=== PATIENT | female | born 1965 | race Caucasian/White ===

== ENCOUNTER → 2021-01-01 | Outpatient (CLI) | payer BC ==
--- NOTE | 2021-01-03 10:18 | MM ---
Reason for exam: screening (asymptomatic). Last mammogram was performed 11 years and 6 months ago. History: Family history of breast cancer in mother at age 62. Taking hormonal contraceptives for 3 years beginning at age 38. Physical Findings: A clinical breast exam by your physician is recommended on an annual basis and results should be correlated with mammographic findings. MG Screening Mammo w CAD Bilateral CC and MLO view(s) were taken. Prior study comparison: July 09, 2009, bilateral digital screening mammogram. March 18, 2007, bilateral screening mammogram w/CAD. The breast tissue is heterogeneously dense. This may lower the sensitivity of mammography. Finding: There is a 8 mm high density mass located 10 cm from the nipple in the upper outer quadrant of the right breast consistent with possible mass, cyst. New finding since July 09, 2009 and March 18, 2007. ASSESSMENT: Incomplete: need additional imaging evaluation, BI-RAD 0 RECOMMENDATION: Ultrasound of the right breast. [facility] will attempt to contact patient to return for ultrasound.
== END | disposition home or self-care (01) ==
LOC: RADMAMWWP 11:08
PROVIDERS: ATTEND Family Medicine
DX: Z12.31 Encounter for screening mammogram for malignant neoplasm of breast (principal); Z80.3 Family history of malignant neoplasm of breast
CPT/HCPCS: 77067

== ENCOUNTER 2021-01-15 07:42 | Day surgery (SDC) | payer BC ==
[2021-01-13 10:27] VITALS: BMI 37.8
[~2021-01-15 07:42] MED LIST: LACTATED RINGERS 1,000 ML IV SCH; LIDOCAINE 1% (10MG/ML) FOR IV START INTRADERMA PRN
[2021-01-15 08:18] VITALS: TEMP 97.5
[2021-01-15] MEDS ORDERED: PROPOFOL 10 MG/ML 20 ML VIAL IV ONE (08:42)
--- NOTE | 2021-01-15 09:02 | P.PCN ---
Date of Procedure: 01/15/21 Procedure(s) Performed: BRIEF HISTORY: Patient is a 55-year-old pleasant female scheduled for an elective colonoscopy as a part of screening for colorectal neoplasia. PROCEDURE PERFORMED: Colonoscopy. PREOPERATIVE DIAGNOSIS: Screening for colon cancer. IV sedation per Anesthesia. PROCEDURE: After informed consent was obtained, the patient, was brought into the endoscopy unit. IV sedation was administered by Anesthesia under continuous monitoring. Digital rectal examination was normal. Initially the Olympus CF-160 flexible video colonoscope was then inserted in the rectum, gradually advanced into the cecum without any difficulty. Careful examination was performed as the scope was gradually being withdrawn. Ileocecal valve and the appendiceal orifice were visualized and appeared normal. Prep was excellent. Mucosa of the cecum, ascending colon, transverse colon, descending colon, sigmoid colon, and rectum appeared normal. Retroflexion was performed in the rectum and no lesions were seen. The patient tolerated the procedure well. IMPRESSION: Normal-appearing colon from rectum to cecum with no evidence of colorectal neoplasia . RECOMMENDATIONS: Findings of this examination were discussed with the patient as well as a family. She was advised to have a repeat screening colonoscopy in 10 years..
[2021-01-15 09:19] VITALS: BP 121/78; PULSE 61; RESP 18
== END 2021-01-15 09:37 | disposition home or self-care (01) ==
LOC: ORWHC2ENDO 07:42
PROVIDERS: ATTEND Internal Medicine Gastroenterology
DX: Z12.11 Encounter for screening for malignant neoplasm of colon (principal); Z79.899 Other long term (current) drug therapy; R56.9 Unspecified convulsions; G43.909 Migraine, unspecified, not intractable, without status migrainosus; Z98.84 Bariatric surgery status
CPT/HCPCS: J2704; G0121

== ENCOUNTER → 2021-01-24 | Outpatient (CLI) | payer BC ==
--- NOTE | 2021-01-27 10:34 | USB ---
Reason for exam: additional evaluation requested from abnormal screening. History: Family history of breast cancer in mother at age 62. Taking hormonal contraceptives for 3 years beginning at age 38. Physical Findings: Nurse did not find any significant physical abnormalities on exam. US Breast Workup Limited RT Technologist: Candy Disla Right limited breast ultrasound including focal area of concern, retroareolar and axilla demonstrates a 0.5 x 0.7 x 0.2cm cystic, minimally complex lesion at 10 o'clock, a 1.0 x 1.8 x 0.7cm cystic, complex/septated, probably benign lesion at 10 o'clock, a 0.5 x 0.6 x 0.4cm cystic lesion at 11 o'clock, a 0.9 x 1.1 x 0.5cm cystic lesion at 10 o'clock, a 0.9 x 1.1 x 0.5cm cystic lesion at 10 o'clock, simple, most likely mammographic nodule and a 3.6 x 1.1cm lymph node at the axilla. These results were verbally communicated with the patient and result sheet given to the patient on 01/24/21. ASSESSMENT: Probably benign, BI-RAD 3 RECOMMENDATION: Ultrasound of the right breast in 6 months.
== END | disposition home or self-care (01) ==
LOC: RADUSWWP 07:44
PROVIDERS: ATTEND Family Medicine
DX: N60.01 Solitary cyst of right breast (principal); Z80.3 Family history of malignant neoplasm of breast; Z79.3 Long term (current) use of hormonal contraceptives

== ENCOUNTER 2021-03-01 13:50 | Emergency (ER) | payer BC, OTHER ==
[2021-03-01 13:57] VITALS: BP 119/75; PULSE 54; RESP 20; TEMP 98.1
[2021-03-01] MEDS ORDERED: ACET/COD 300 MG/30 MG STARTER PACK 6 TAB BTL PO STA (14:17)
[2021-03-01] MEDS ORDERED: HYDROcodone/APAP 5-325MG 1 EACH TAB PO STA (14:17)
--- NOTE | 2021-03-01 14:20 | ED ---
Back Pain HPI - General Chief Complaint: Back Pain/Injury Stated Complaint: Back injury [facility] Time Seen by Provider: 03/01/21 13:59 Source: patient, RN notes reviewed Limitations: no limitations - History of Present Illness Initial Comments: This a 54-year-old female presents emergency Department chief complaint low back pain. Patient states she was at work moving patient states that she twisted wrong. Patient had a history of sciatica feels are similar. Denies any bowel, bladder incontinence or patient denies any falls no abdominal complaints no other issues - Related Data Home Medications Medication Instructions Recorded Confirmed Ergocalciferol [Vitamin D2] 50,000 unit PO FR 04/16/20 01/13/21 FLUoxetine HCL [PROzac] 40 mg PO DAILY 04/16/20 01/13/21 Pedi Multivit No.25/Folic Acid 2 tab PO DAILY 04/16/20 01/13/21 [Flintstones Multivit Chew Tab] buPROPion [Wellbutrin] 200 mg PO BID 04/16/20 01/13/21 Previous Rx's Medication Instructions Recorded Cyclobenzaprine [Flexeril] 5 mg PO TID PRN #15 tablet 03/01/21 Ibuprofen [Motrin] 600 mg PO Q8HR PRN #20 tab 03/01/21 predniSONE 50 mg PO DAILY #5 tab 03/01/21 Allergies Allergy/AdvReac Type Severity Reaction Status Date / Time No Known Allergies Allergy Verified 03/01/21 13:56 Review of Systems ROS Statement: Those systems with pertinent positive or pertinent negative responses have been documented in the HPI. ROS Other: All systems not noted in ROS Statement are negative. Past Medical History Past Medical History: Seizure Disorder Additional Past Medical History / Comment(s): migraines, last seizure 2014(none since wt loss), History of Any Multi-Drug Resistant Organisms: None Reported Past Surgical History: Bariatric Surgery, Section, Tonsillectomy Additional Past Surgical History / Comment(s): gastric bypass, Past Anesthesia/Blood Transfusion Reactions: Motion Sickness Additional Past Anesthesia/Blood Transfusion Reaction / Comment(s): past hx motion sickness Past Psychological History: Depression Smoking Status: Never smoker Past Alcohol Use History: None Reported Past Drug Use History: None Reported - Past Family History Mother Family Medical History: Cancer General Exam Limitations: no limitations General appearance: alert, in no apparent distress Head exam: Present: atraumatic, normocephalic, normal inspection Neck exam: Present: normal inspection. Absent: tenderness, meningismus, lymphadenopathy Respiratory exam: Present: normal lung sounds bilaterally. Absent: respiratory distress, wheezes, rales, rhonchi, stridor Cardiovascular Exam: Present: regular rate, normal rhythm, normal heart sounds. Absent: systolic murmur, diastolic murmur, rubs, gallop, clicks GI/Abdominal exam: Present: soft, normal bowel sounds. Absent: distended, tenderness, guarding, rebound, rigid Extremities exam: Present: normal inspection, full ROM, normal capillary refill. Absent: tenderness, pedal edema, joint swelling, calf tenderness Back exam: Present: normal inspection, tenderness, muscle spasm, paraspinal te nderness. Absent: full ROM, vertebral tenderness Neurological exam: Present: reflexes normal. Absent: motor sensory deficit Course Vital Signs 03/01/21 13:52 Temperature 98.1 F Pulse Rate 54 L Respiratory 20 Rate Blood Pressure 119/75 O2 Sat by Pulse 99 Oximetry Medical Decision Making - Medical Decision Making Patient has a lumbar strain with no red flag symptoms she does have some radicular symptoms which has happened in the past with this patient will be discharged stable condition return parameters were discussed. Disposition Clinical Impression: Strain of lumbar region, Lumbar radiculopathy Disposition: HOME SELF-CARE Condition: Stable Instructions (If sedation given, give patient instructions): Acute Low Back Pain (ED) Additional Instructions: Please return to the Emergency Department if symptoms worsen or any other concerns. Prescriptions: Cyclobenzaprine [Flexeril] 5 mg PO TID PRN #15 tablet PRN Reason: Muscle Spasm Ibuprofen [Motrin] 600 mg PO Q8HR PRN #20 tab PRN Reason: Pain predniSONE 50 mg PO DAILY #5 tab Is patient prescribed a controlled substance at d/c from ED?: No Referrals: Adwoa Forte MD [Primary Care Provider] - 1-2 days Time of Disposition: 14:20
== END 2021-03-01 14:36 | disposition home or self-care (01) ==
LOC: EC 13:50
DX: S39.012A Strain of muscle, fascia and tendon of lower back, initial encounter (principal); M54.16 Radiculopathy, lumbar region; G40.909 Epilepsy, unspecified, not intractable, without status epilepticus; F32.9 Major depressive disorder, single episode, unspecified; Z79.1 Long term (current) use of non-steroidal anti-inflammatories (NSAID); Z79.52 Long term (current) use of systemic steroids; Z79.899 Other long term (current) drug therapy; Z98.84 Bariatric surgery status; X50.1XXA Overexertion from prolonged static or awkward postures, initial encounter; Y99.0 Civilian activity done for income or pay
CPT/HCPCS: 99283

== ENCOUNTER → 2021-03-06 | Outpatient (CLI) | payer OTHER ==
--- NOTE | 2021-03-06 17:48 | XR ---
PROCEDURE: XR LUMBAR SPINE - 3V DATE AND TIME: 03/06/2021 5:16 PM CLINICAL INDICATION: Pain after heavy lifting injury 5 days ago; S39.012D TECHNIQUE: Department protocol COMPARISON: None FINDINGS: There is no fracture or malalignment. The soft tissues are unremarkable. IMPRESSION: No acute radiographic process.
== END | disposition home or self-care (01) ==
LOC: RADXRMAIN 16:36
PROVIDERS: ATTEND Emergency Medicine
DX: S39.012D Strain of muscle, fascia and tendon of lower back, subsequent encounter (principal)
CPT/HCPCS: 72100

== ENCOUNTER → 2022-02-16 | Outpatient (CLI) | payer BC ==
--- NOTE | 2022-02-16 08:14 | USB ---
Patient History: Menarche at age 11. First Full-Term at age 29. Postmenopausal. Hormonal Contraceptives, starting at age 38 for 3 years. Mother had breast cancer, age 62. Risk Values: Mandy 5 year model risk: 2.7%. NCI Lifetime model risk: 16.6%. Prior Study Comparison: 03/18/2007 Bilateral Screening Mammogram, [facility]. 07/09/2009 Bilateral Screening Mammogram, [facility]. 01/01/2021 Bilateral Screening Mammogram, [facility]. Findings: The whole breast of the right breast, the axilla of the right breast and the retroareolar of the right breast were scanned. Whole right breast ultrasound is performed including scanning of the subareolar region and axilla. - 9:00 position, 6 cm from the nipple, there is a 7 mm benign cyst. - 10:00 position, 8 cm from the nipple, there is a 1.1 cm benign cyst. - 11:00 position, 8 cm from the nipple, there is a 1.4 x 1.2 x 0.6 cm lobulated cyst cluster (previously measured 1.8 x 1.0 x 0.7 cm). Stability and slight decrease in size suggests a benign etiology. Probable mammographic correlate. An additional one-year diagnostic follow-up mammogram can be performed. No other solid or cystic lesion. No axillary lymphadenopathy. Overall Assessment: Probably benign, BI-RAD 3 Management: Diagnostic Mammogram of both breasts in 1 year. 1. For reassessment of the right-sided upper outer quadrant nodularity (total 2 year follow-up right breast and annual exam left breast). 2. Patient should continue monthly self breast exam. A clinical breast exam by your physician is recommended on an annual basis. 3. This exam should not preclude additional follow-up of suspicious palpable abnormalities. Electronically signed and approved by: Selin Arguello M.D. Radiologist
--- NOTE | 2022-02-27 15:50 | MM ---
Reason for Exam: Additional evaluation requested from prior study. Last mammogram was performed 1 year(s) and 2 month(s) ago. Patient History: Menarche at age 11. First Full-Term at age 29. Postmenopausal. Hormonal Contraceptives, starting at age 38 for 3 years. Mother had breast cancer, age 62. Risk Values: Mandy 5 year model risk: 2.7%. NCI Lifetime model risk: 16.6%. Prior Study Comparison: 03/18/2007 Bilateral Screening Mammogram, [facility]. 07/09/2009 Bilateral Screening Mammogram, [facility]. 01/01/2021 Bilateral Screening Mammogram, [facility]. Tissue Density: The breast tissue is heterogeneously dense. This may lower the sensitivity of mammography. Findings: Analyzed By CAD. Upper outer quadrant right breast nodularity is unchanged for one year. Global asymmetry lateral left CC view also remains unchanged. There is otherwise, no significant change from prior exams. Ultrasound reassessment recommended. Overall Assessment: Incomplete: need additional imaging evaluation, BI-RAD 0 Management: Diagnostic Breast Ultrasound of the right breast. Right breast ultrasound follow-up from prior. Electronically signed and approved by: Selin Arguello M.D. Radiologist
== END | disposition home or self-care (01) ==
LOC: RADMAMWWP 06:58
PROVIDERS: ATTEND Family Medicine
DX: R92.8 Other abnormal and inconclusive findings on diagnostic imaging of breast (principal); Z78.0 Asymptomatic menopausal state; Z80.3 Family history of malignant neoplasm of breast
CPT/HCPCS: 77066

== ENCOUNTER 2022-04-23 00:09 | Emergency (ER) | payer BC, OTHER ==
[2022-04-23 00:14] VITALS: RESP 18; TEMP 97.6
--- NOTE | 2022-04-23 00:20 | ED ---
General Adult HPI - General Chief complaint: Dizziness Stated complaint: Chest Pain Time Seen by Provider: 04/23/22 00:09 Source: patient, EMS Mode of arrival: EMS Limitations: no limitations - History of Present Illness Initial comments: Dictation was produced using [employer] dictation software. please excuse any grammatical, word or spelling errors. Chief Complaint: 56-year-old female presents to the emergency department for chief complaint of palpitations History of Present Illness: 56-year-old female who presents emergency department for palpitations. Patient's history of CABG. Just prior to arrival for the onset of her symptoms she had a marijuana coming. That her daughter gave her. Patient does not consume marijuana. This is her first time. She thought that maybe he might help her feel more relief. And to help her sleep. Patient has any symptoms currently. Denies any chest pain or chest pressure. She also rep orts that her extremities and skin feel tingly. The ROS documented in this emergency department record has been reviewed and confirmed by me. Those systems with pertinent positive or negative responses have been documented in the HPI. All other systems are other negative and/or noncontributory. PHYSICAL EXAM: General Impression: Alert and oriented x3, not in acute distress HEENT: Normocephalic atraumatic, extra-ocular movements intact, pupils equal and reactive to light bilaterally, mucous membranes moist. Cardiovascular: Heart regular rate and rhythm Chest: Able to complete full sentences, no retractions, no tachypnea Abdomen: abdomen soft, non-tender, non-distended, no organomegaly Musculoskeletal: Pulses present and equal in all extremities, no peripheral edema Motor: no focal deficits noted Neurological: CN II-XII grossly intact, no focal motor or sensory deficits noted Skin: Intact with no visualized rashes Psych: Normal affect and mood ED course: 56-year-old female presents emergency with clinical presentation consistent with marijuana toxicity. Vital signs upon arrival are within acceptable limits. Laboratory evaluation obtained. CBC metabolic panel unremarkable. Cardiac enzymes negative. Electrolytes normal. Patient reevaluated at 1:40 AM found to be in stable medical condition. She feels better. She denies any symptoms at this time. Daughters at the bedside take patient home and monitor patient for the next cold days. Patient advised follow-up with primary care doctor. EKG interpretation: Ventricular rate 77, sinus rhythm,. Interval 186, QS 102, QTC 406. No OK prolongation, no QTC prolongation, no ST or T-wave changes noted. No old EKG for comparison. Overall, this EKG is unremarkable - Related Data Home Medications Medication Instructions Recorded Confirmed Ergocalciferol [Vitamin D2] 50,000 unit PO FR 04/16/20 01/13/21 FLUoxetine HCL [PROzac] 40 mg PO DAILY 04/16/20 01/13/21 Pedi Multivit No.25/Folic Acid 2 tab PO DAILY 04/16/20 01/13/21 [Flintstones Multivit Chew Tab] buPROPion [Wellbutrin] 200 mg PO BID 04/16/20 01/13/21 Previous Rx's Medication Instructions Recorded Cyclobenzaprine [Flexeril] 5 mg PO TID PRN #15 tablet 03/01/21 Ibuprofen [Motrin] 600 mg PO Q8HR PRN #20 tab 03/01/21 predniSONE 50 mg PO DAILY #5 tab 03/01/21 Allergies Allergy/AdvReac Type Severity Reaction Status Date / Time No Known Allergies Allergy Verified 03/01/21 13:56 Review of Systems ROS Statement: Those systems with pertinent positive or pertinent negative responses have been documented in the HPI. ROS Other: All systems not noted in ROS Statement are negative. Past Medical History Past Medical History: Seizure Disorder Additional Past Medical History / Comment(s): migraines, last seizure 2014(none since wt loss), History of Any Multi-Drug Resistant Organisms: None Reported Past Surgical History: Bariatric Surgery, Section, Tonsillectomy Additional Past Surgical History / Comment(s): gastric bypass, Past Anesthesia/Blood Transfusion Reactions: Motion Sickness Additional Past Anesthesia/Blood Transfusion Reaction / Comment(s): past hx motion sickness Past Psychological History: Depression Smoking Status: Never smoker Past Alcohol Use History: None Reported Past Drug Use History: None Reported - Past Family History Mother Family Medical History: Cancer General Exam Limitations: no limitations Course Vital Signs 04/23/22 00:11 Temperature 97.6 F Pulse Rate 90 Respiratory 18 Rate Blood Pressure 146/77 O2 Sat by Pulse 95 Oximetry Medical Decision Making - Lab Data Result diagrams: 04/23/22 00:34 04/23/22 00:34 Lab Results 04/23/22 04/23/22 04/23/22 Range/Units 00:34 00:34 00:34 WBC 7.9 (3.8-10.6) k/uL RBC 4.52 (3.80-5.40) m/uL Hgb 13.7 (11.4-16.0) gm/dL Hct 39.6 (34.0-46.0) % MCV 87.6 (80.0-100.0) fL MCH 30.4 (25.0-35.0) pg MCHC 34.7 (31.0-37.0) g/dL RDW 12.8 (11.5-15.5) % Plt Count 363 (150-450) k/uL MPV 7.3 Neutrophils % 47 % Lymphocytes % 41 % Monocytes % 4 % Eosinophils % 5 % Basophils % 1 % Neutrophils # 3.7 (1.3-7.7) k/uL Lymphocytes # 3.2 (1.0-4.8) k/uL Monocytes # 0.3 (0-1.0) k/uL Eosinophils # 0.4 (0-0.7) k/uL Basophils # 0.1 (0-0.2) k/uL Sodium 141 (137-145) mmol/L Potassium 3.8 (3.5-5.1) mmol/L Chloride 107 (98-107) mmol/L Carbon Dioxide 24 (22-30) mmol/L Anion Gap 10 mmol/L BUN 17 (7-17) mg/dL Creatinine 0.79 (0.52-1.04) mg/dL Est GFR (CKD-EPI)AfAm >90 (>60 ml/min/1.73 sqM) Est GFR (CKD-EPI)NonAf 85 (>60 ml/min/1.73 sqM) Glucose 91 (74-99) mg/dL Calcium 9.2 (8.4-10.2) mg/dL Magnesium 2.0 (1.6-2.3) mg/dL Troponin I <0.012 (0.000-0.034) ng/mL Disposition Clinical Impression: Marijuana intoxication Disposition: HOME SELF-CARE Condition: Good Instructions (If sedation given, give patient instructions): Cannabis Abuse (ED) Is patient prescribed a controlled substance at d/c from ED?: No Referrals: Adwoa Forte MD [Primary Care Provider] - 1-2 days Time of Disposition: 01:38
[2022-04-23 01:11] LABS: Basophils # (A) 0.1 k/uL (0-0.2); Basophils % (A) 1 %; Eosinophils # (A) 0.4 k/uL (0-0.7); Eosinophils % (A) 5 %; HCT 39.6 % (34.0-46.0); HGB 13.7 gm/dL (11.4-16.0); Lymphocytes # (A) 3.2 k/uL (1.0-4.8); Lymphocytes % (A) 41 %; MCH 30.4 pg (25.0-35.0); MCHC 34.7 g/dL (31.0-37.0); MCV 87.6 fL (80.0-100.0); Mean Platelet Volume 7.3; Monocytes # (A) 0.3 k/uL (0-1.0); Monocytes % (A) 4 %; Neutrophils # (A) 3.7 k/uL (1.3-7.7); Neutrophils % (A) 47 %; Platelet Count 363 k/uL (150-450); RBC 4.52 m/uL (3.80-5.40); RDW 12.8 % (11.5-15.5); WBC 7.9 k/uL (3.8-10.6)
[2022-04-23 01:24] LABS: African American GFR (CKD) >90 (>60 ml/min/1.73 sqM); Anion Gap 10 mmol/L; Blood Urea Nitrogen 17 mg/dL (7-17); Calcium 9.2 mg/dL (8.4-10.2); Carbon Dioxide 24 mmol/L (22-30); Chloride 107 mmol/L (98-107); Glucose 91 mg/dL (74-99); Non-African American GFR(CKD) 85 (>60 ml/min/1.73 sqM); Potassium 3.8 mmol/L (3.5-5.1); Sodium 141 mmol/L (137-145)
[2022-04-23 01:57] VITALS: BP 124/71; PULSE 67
== END 2022-04-23 01:57 | disposition home or self-care (01) ==
LOC: EC 00:09
DX: F12.129 Cannabis abuse with intoxication, unspecified (principal); Z95.1 Presence of aortocoronary bypass graft
CPT/HCPCS: 36415; 80048; 83735; 84484; 85025; 93005; 99285

== ENCOUNTER → 2023-06-16 | Outpatient (CLI) | payer BC ==
--- NOTE | 2023-06-16 08:09 | MM ---
Reason for Exam: Follow-up at short interval from prior study. Last mammogram was performed 1 year(s) and 3 month(s) ago. Patient History: Menarche at age 11. First Full-Term at age 29. Postmenopausal. Hormonal Contraceptives, starting at age 38 for 3 years. Mother had breast cancer, age 62. Risk Values: Mandy 5 year model risk: 2.8%. NCI Lifetime model risk: 16.2%. Tissue Density: The breast tissue is heterogeneously dense. This may lower the sensitivity of mammography. Findings: Analyzed By CAD. No new suspicious masses, calcifications or distortions. Overall Assessment: Negative, BI-RAD 1 Management: Screening Mammogram of both breasts in 1 year. Results were given to the patient verbally at the time of exam. Patient should continue monthly self-breast exams. A clinical breast exam by your physician is recommended on an annual basis. This exam should not preclude additional follow-up of suspicious palpable abnormalities. Note on Mandy scores and lifetime risk: 1. A Mandy score greater than 3% is considered moderate risk. If this is the case, consider specialist referral to assess eligibility for a risk reducing agent. 2. If overall lifetime risk for the development of breast cancer is 20% or higher, the patient may qualify for future screening with alternating mammogram and breast MRI. Electronically signed and approved by: Marcus Sosa DO
== END | disposition home or self-care (01) ==
LOC: RADMAMWWP 07:05
PROVIDERS: ATTEND Family Medicine
DX: R92.333 Mammographic heterogeneous density, bilateral breasts (principal); N60.01 Solitary cyst of right breast; Z78.0 Asymptomatic menopausal state; Z80.3 Family history of malignant neoplasm of breast
CPT/HCPCS: 77062; 77066